=== PATIENT | female | born 1970 | race Caucasian/White ===

== ENCOUNTER → 2016-08-23 | Outpatient (CLI) | payer BC ==
[~2016-08-23] MED LIST: ANTIVERT 12.512.5 MG PO; ANTIVERT 25MG25 MG PO; HCTZ12.5TAB PO; NORCO 325 MG-51 TAB PO; PREDNISONE20 MG PO; SINGULAIR 110 MG/TAB PO; ZOFRAN 4MG T4 MG/TAB PO
== END ==
LOC: COL.RAD 14:54
DX: M79.604 Pain in right leg (principal); R60.0 Localized edema

== ENCOUNTER 2016-08-30 12:30 | Outpatient (RCR) | payer BC | END 2016-10-03 08:24 | disposition home or self-care (01) | LOC: WSPT 12:30 | DX: Z47.89 Encounter for other orthopedic aftercare (principal); M25.861 Other specified joint disorders, right knee ==

== ENCOUNTER 2018-09-25 13:15 | Outpatient (RCR) | payer BC | END 2018-09-25 13:53 | disposition home or self-care (01) | LOC: WSC 13:15 | DX: M75.111 Incomplete rotator cuff tear or rupture of right shoulder, not specified as traumatic (principal) ==

== ENCOUNTER → 2019-06-13 | Outpatient (CLI) | payer BC | LOC: MC.RAD 11:26 | DX: Z12.31 Encounter for screening mammogram for malignant neoplasm of breast (principal) ==

== ENCOUNTER 2021-11-07 14:14 | Emergency (ER) | payer OTHER ==
[~2021-11-07] VITALS: Ht 162.6 cm; Wt 96.8 kg
[2021-11-07 14:23] VITALS: TEMP 97.9
[2021-11-07 15:11] LABS: BASO # 0.1 K/mm3 (0.0-0.2); BASO % 0.5 % (0.0-2.0); EOS # 0.2 K/mm3 (0.0-0.7); EOS % 1.5 % (0.0-4.0); GRAN % 76.1 % (42.2-75.2); HEMATOCRIT 42.2 % (37.0-47.0); HEMOGLOBIN 14.3 g/dl (12.5-16.0); LYMPH # 2.3 K/mm3 (1.2-3.4); MEAN CELL VOLUME 87 fl (80.0-100.0); MEAN CORPUSCULAR HEMOGLOBIN 30 pg (27-31); MEAN CORPUSCULAR HGB CONC 34 g/dl (33.0-37.0); MEAN PLATELET VOLUME 11.6 fl (7.4-10.4); MONO # 0.8 K/mm3 (0.1-0.6); MONO % 5.6 % (1.7-9.3); PLATELET COUNT 251 K/mm3 (130-400); RED BLOOD COUNT 4.85 M/mm3 (4.10-5.30); REDCELL DISTRIBUTION WIDTH-CV 13.2 % (11.5-14.5)
[2021-11-07 15:18] LABS: BILIRUBIN,TOTAL 0.6 mg/dL (0.2-1.2); C-REACTIVE PROTEIN 1.44 mg/dL (0.00-0.50); CALCIUM 10.8 mg/dL (8.4-10.2); CREATININE, serum 1.07 mg/dL (0.57-1.11); POTASSIUM 4.5 mmol/L (3.5-4.5); TOTAL PROTEIN 7.4 gm/dL (6.2-8.1)
[2021-11-07 18:16] VITALS: BP 164/107; PULSE 69
== END 2021-11-07 18:16 | disposition home or self-care (01) ==
LOC: COL.ER 14:14
PROVIDERS: Nurse Practitioner
DX: M79.662 Pain in left lower leg (principal); M25.562 Pain in left knee; R06.02 Shortness of breath; Z98.890 Other specified postprocedural states
CPT/HCPCS: J1650; J7030; Q9967

== ENCOUNTER → 2021-11-08 | Outpatient (CLI) | payer OTHER | LOC: COL.RAD 07:38 | DX: M79.605 Pain in left leg (principal) ==

== ENCOUNTER → 2021-12-07 | Outpatient (CLI) | payer OTHER | LOC: COL.RAD 12:49 | DX: E04.1 Nontoxic single thyroid nodule (principal) ==

== ENCOUNTER → 2022-09-11 | Outpatient (CLI) | payer OTHER ==
[~2022-09-11] MED LIST changes: +COREG 3.123.125 MG/T PO; +LEXAPRO 10MG10 MG PO; +MOBIC15 MG PO; +PRILOSEC 20MG20 MG PO; +PRINZIDE 25 MG-1 TAB PO
== END ==
LOC: MC.RAD 10:47
DX: Z12.31 Encounter for screening mammogram for malignant neoplasm of breast (principal)